=== PATIENT | male | born 1965 | race Caucasian/White ===

== ENCOUNTER 2024-02-20 09:54 | Emergency (ER) | payer SELFPAY ==
--- NOTE | ~2024-02-20 | XR_ITS ---
XR chest 1V portable DATE: 02/20/2024 10:20 INDICATION: Chest pain TECHNIQUE: Portable upright AP chest on 02/20/2024 1026 hours COMPARISON: None FINDINGS: Bilateral lower lung atelectasis and possible mild infiltrate. No pleural effusion or pulmo nary vascular congestion or pneumothorax. Normal heart size. No hilar or mediastinal enlargement. Included skeletal structures are unremarkable. IMPRESSION: Mild bibasilar infiltrate and/atelectasis Reviewed, dictated and finalized at location B.
[2024-02-20 09:54] VITALS: BP 111/98; PULSE 66; PULSE 78; RESP 18; TEMP 36.6; O2SAT 99
[2024-02-20 10:00] VITALS: PULSE 72; RESP 15; O2SAT 97
[2024-02-20 10:01] VITALS: BP 108/77; PULSE 71; RESP 14; O2SAT 99
[2024-02-20 10:02] LABS: Glucose Point of Care 252 mg/dl (65-105)
--- NOTE | 2024-02-20 10:02 | ECG_ITS ---
Measurements Intervals [place] Rate: 68 P: 32 VA: 182 QRS: -6 QRSD: 89 T: -57 QT: 387 QTc: 412 Interpretive Statements SINUS RHYTHM INFERIOR ST ELEVATION MYOCARDIAL INFARCT- ACUTE WITH RECIPROCAL HIGH LATERAL ST DEPRESSION BASELINE ARTIFACT- I, AVL ABNORMAL ECG NO PREVIOUS ECG AVAILABLE FOR COMPARISON Electronically Signed On 02-20-2024 11:49:37 CDT by Alex Fontana D.O.
[2024-02-20 10:15] VITALS: PULSE 78; RESP 17; O2SAT 97
[2024-02-20 10:16] VITALS: BP 135/86; PULSE 87; RESP 20; O2SAT 97
--- NOTE | 2024-02-20 10:19 | ED.GENADULT ---
HPI - General Adult General Chief complaint: Dizziness Stated complaint: dizzy; fall; chest pain Time Seen by Provider: 02/20/24 10:02 History of Present Illness HPI narrative: the patient is a 58-year-old male who takes no medications but has history of diabetes and hyperlipidemia. He does not smoke. For the last 2 days, the patient has had tingling in his arms and legs, with occasional discomfort in the arms and legs. He also has had discomfort in the upper chest neck and back region, most recent episode of chest neck or back discomfort was last night, no chest pain today or neck pain or back pain. He did have an episode of dizziness and near syncope with lightheadedness 2 days ago which prompted the onset of symptoms. He adamantly denies any chest pain at present. Last episode of pain was last night. He denies nausea vomiting or diaphoresis. No syncope at present today or yesterday. No dizziness present. He has been working quite a bit, 70 hour weeks and feels exhausted and tired. No URI or UTI symptoms. No pleuritic component to the chest pain. No dyspnea. No cough. No complaints. Related Data Allergies Allergy/AdvReac Type Severity Reaction Status Date / Time No Known Allergies Allergy Unverified 01/06/20 10:40 Review of Systems Review of Systems: All systems reviewed & are unremarkable except as noted in HPI and below Constitutional: Constitutional: Denies chills, Denies excessive sweating, Reports fatigue, Denies fever(s), Denies headache(s) and Reports weakness ( Generalized weakness with fatigue) Eyes: Eyes: Denies change in vision and Denies photophobia ENT: Denies dysphagia, Reports dizziness, Denies headache(s), Denies lip swelling, Denies nasal congestion, Denies sore throat and Denies tongue swelling Cardiovascular: Cardiovascular: Reports chest pain ( most recent episode yesterday evening), Denies syncope, Denies rapid heart rate and Denies dyspnea Respiratory: Respiratory: Denies cough, Denies dyspnea and Denies wheezing Gastrointestinal: Gastrointestinal: Denies abdominal pain, Denies constipation, Denies dysphagia, Denies diarrhea, Denies nausea and Denies vomiting Genitourinary: Genitourinary: Denies hematuria, Denies dysuria, Denies urinary frequency and Denies urinary urgency Musculoskeletal: Musculoskeletal: Denies back pain, Denies myalgias, Denies arthralgias, Denies joint swelling and Denies numbness Integumentary/Breasts: Skin/Breast: Denies pruritus, Denies erythema and Denies rash Neurologic: Denies confusion, Denies syncope, Denies headache(s), Denies focal weakness, Denies numbness and Denies weakness Comments: complains of tingling in both arms and both legs Psychiatric: Psychiatric: Denies anxiety and Denies confusion Endocrine: Endocrine: Denies excessive sweating and Reports fatigue Hematologic/Lymphatic: Hematologic/Lymphatic: Denies easy bleeding and Denies easy bruising Allergic/Immunologic: Allergic/Immunologic: Denies lip swelling, Denies tongue swelling and Denies wheezing PMFSH Family History Family History Father Hypertension Social History Social History Smoking status: Never smoker Alcohol intake: current Exam Const: General: healthy appearing, no acute distress, alert and well nourished Nutritional Appearance: well nourished Orientation/consciousness: patient oriented x3 Limitations: no limitations HENMT: Head: normal to inspection Ears: external ears normal Face/Nose/Sinus: normal facial exam Face and sinus: normal facial exam Mouth: Yes moist mucous membranes Throat: posterior oropharynx normal Eyes: Conjunctivae: conjunctivae normal Pupils: Equal, round and reactive pupils present EOM: EOMs intact bilaterally Neck: Neck: normal visual inspection and no meningeal signs Chest: Chest palpation & inspection: normal inspection of the
[2024-02-20 10:20] LABS: Basophils Absolute Auto 0.02 K/mm3 (0.00-0.10); Basophils Percent Auto 0.2 % (0.0-1.0); Eosinophils Absolute Auto 0.02 K/mm3 (0.02-0.50); Eosinophils Percent Auto 0.2 % (1.0-6.0); Hematocrit 39.2 % (40.0-54.0); Hemoglobin 12.9 g/dL (14.0-18.0); Immature Granulocyte Absolute 0.04 K/mm3 (0.00-0.00); Immature Granulocyte Percent A 0.4 % (0.0-0.0); Lymphocytes Absolute Auto 2.15 K/mm3 (1.10-4.50); Lymphocytes Percent Auto 21.7 % (18.0-42.0); Mean Corpuscular HGB Conc 32.9 g/dL (32-36); Mean Corpuscular Hemoglobin 26.9 pg (27.0-31.0); Mean Corpuscular Volume 81.7 fL (78.0-102.0); Mean Platelet Volume 10.1 fl (8.7-11.0); Monocytes Absolute Auto 1.04 K/mm3 (0.10-0.90); Monocytes Percent Auto 10.5 % (2.0-11.0); Neutrophils Absolute Auto 6.65 K/mm3 (1.70-7.20); Platelet Count Result 252 K/mm3 (150-420); Red Cell Distribution Width 12.7 % (11.6-14.4); White Blood Count 9.9 K/mm3 (4.8-10.8)
[2024-02-20] MEDS: ASPIRIN 81 MG CHEWABLE TABLET 324 MG PO (10:21)
[2024-02-20] MEDS: HEPARIN SODIUM 5,000 UNITS/ML VIAL 4000 UNITS IV PUSH (10:25)
[2024-02-20] MEDS: HEPARIN SOD/D5W 100 UNITS/ML 25,000 UNITS/250 ML BAG 10.6 UNITS (10:26)
[2024-02-20 10:34] VITALS: BP 138/86; PULSE 78; RESP 20; TEMP 36.9; O2SAT 98
[2024-02-20 10:35] LABS: Partial Thromboplastin Time 25.6 Sec (23.9-30.70); Prothrombin Time 10.8 Seconds (9.50-12.1)
[2024-02-20 10:44] LABS: Alanine Aminotransferase 39 U/L (16-63); Albumin Level 3.1 g/dL (3.4-5.0); Alkaline Phosphatase 105 U/L (46-116); Anion Gap 12 mmol/L (8-16); Aspartate Amino Transferase 79 U/L (15-37); Bilirubin,Total 0.6 mg/dL (0.00-1.00); Blood Urea Nitrogen 20 mg/dL (7-18); Calcium 8.8 mg/dL (8.5-10.1); Carbon Dioxide 27 mmol/L (21-32); Chloride 100 mmol/L (98-108); Creatine Kinase 592 U/L (39-308); Estimated CRCL calculation 77 ml/min; Estimated Glomerular Filt Rate > 60; Glucose 256 mg/dL (70-99); NT Pro B Type Natriuretic Pept 748 pg/mL (0-125); Osmolality Calculated 299 mOsm/kg (285-295); Potassium 3.8 mmol/L (3.5-5.1); Sodium 139 mmol/L (136-145); Total Protein 6.7 g/dL (6.4-8.2)
== END 2024-02-20 10:34 | disposition short-term general hospital (02) ==
PROVIDERS: Emergency Provider Emergency Medicine
DX: I21.11 ST elevation (STEMI) myocardial infarction involving right coronary artery (principal); E11.9 Type 2 diabetes mellitus without complications; E78.5 Hyperlipidemia, unspecified
CPT/HCPCS: 36415; 71045; 80053; 82550; 82948; 83880; 84484; 85025; 85610; 85730; 93005; 96374; 99291; A9270; J1644

== ENCOUNTER 2024-02-20 11:07 | Inpatient (IN) | payer SELFPAY ==
[2024-02-20] VITALS (28 sets, daily range): BP systolic 94–120; BP diastolic 61–85; PULSE 56–97; RESP 12–20; TEMP 36.1–36.9; O2SAT 95–100; BMI 28.1
--- NOTE | ~2024-02-20 | XR_ITS ---
XR chest 1V portable DATE: 02/20/2024 11:47 INDICATION: STEMI TECHNIQUE: Portable AP chest on 02/20/2024 at 1146 hours COMPARISON: 02/20/2024 portable AP chest at 1026 hours FINDINGS: Bilateral lower lung infiltrate or atelectasis are again noted. No pleural effusion or pulmonary vascular congestion or pneumothorax is evident. Normal heart size. Osteopenia. IMPRESSION: Bilateral lower lung infiltrate and/atelectasis Reviewed, dictated and finalized at location B.
--- NOTE | 2024-02-20 11:10 | ECG_ITS ---
Measurements Intervals [place] Rate: 67 P: 30 NM: 173 QRS: 2 QRSD: 85 T: 6 QT: 385 QTc: 408 Interpretive Statements SINUS RHYTHM LOW QRS VOLTAGE IN PRECORDIAL LEADS INFERIOR ST ELEVATION MYOCARDIAL INFARCT- RECENT BASELINE ARTIFACT- I, II, AVR ABNORMAL ECG NO PREVIOUS ECG AVAILABLE FOR COMPARISON Electronically Signed On 02-20-2024 12:58:21 CDT by Alex Fontana D.O.
[2024-02-20 11:34] LABS: Basophils Percent Auto 0.4 % (0.2-1.2); Eosinophils Percent Auto 0.2 % (0-4.4); Hemoglobin 13.2 g/dL (14.0-18.0); Immature Granulocyte Absolute 0.04 K/mm3 (0.00-0.031); Immature Granulocyte Percent A 0.4 % (0-0.5); Lymphocytes Absolute Auto 2.69 K/mm3 (0.9-3.2); Lymphocytes Percent Auto 25.6 % (18.3-44.2); Mean Corpuscular HGB Conc 33.8 g/dl (32-36); Mean Corpuscular Hemoglobin 27.6 pg (26-34); Mean Corpuscular Volume 81.6 fl (80-100); Mean Platelet Volume 10.6 fl (7.4-10.4); Monocytes Percent Auto 9.7 % (2.6-8.5); Neutrophils Absolute Auto 6.7 K/mm3 (1.3-6.7); Neutrophils Percent Auto 63.7 % (45.5-73.1); Platelet Count Result 268 k/mm3 (150-375); Red Blood Count 4.78 M/mm3 (4.6-6.20); Red Cell Distribution Width 12.9 % (11.5-14.5); White Blood Count 10.5 K/mm3 (4.5-10.0)
--- NOTE | 2024-02-20 11:34 | PM.CNCAR ---
Assessment and Plan Assessment and plan (1) ST elevation (STEMI) myocardial infarction involving right coronary artery: Code(s): I21.11 - ST elevation (STEMI) myocardial infarction involving right coronary artery Status: Acute Plan this is a 58-year-old man with a reported history of hypertension and diabetes on no medical therapy for some time he has presented with inferior wall ST-elevation CO that by history occurred on Friday night. His ischemic pain was interscapular back pain which has resolved by . He has presented far too late to be a candidate or benefit from emergency PCI. His 12 lead electrocardiogram suggest this is a completed event with deep Q-waves in leads 3 and AVF and a very high troponin level on presentation. I will treat him medically at this time with aspirin, beta-ashish, ARB and statin. An echocardiogram will be requested to assess left ventricular function. At some point given his relatively young age we will probably bring him for coronary angiography to assess for significant disease in non infarct related vessel however that does not have to be done even during this hospitalization if he remains asymptomatic Neno Live MD [facility] History of Present Illness History of Present Illness Consult date/time: 02/20/24 11:34 Reason For Visit: stemi Narrative: This is a 58-year-old man I am seeing in the emergency room as he was transferred from [place] following inferior wall myocardial infarction for further evaluation and treatment. The patient is not known to have any cardiac problems prior to this and began to have symptoms of his infarction on Friday evening of this week. He states that he was feeling poorly after working all day and he went home from work to recover. He states that he was having symptoms of some lightheadedness some unsteadiness of his gait and some interscapular back pain radiating from the left to the right shoulder through the upper part of his back. The symptoms of interscapular back pain finally resolved by . The symptoms were not obviously of immediate concern to him. He was feeling poorly through the day yesterday with weakness and fatigue and still was feeling unwell this morning and so he came to the emergency room at [facility] for evaluation. His 12 lead electrocardiogram shows sinus rhythm and evidence of a inferior wall infarction with some residual inferior ST elevation but with deep Q-waves in leads 3 and AVF. Once again he is no longer having any active interscapular back pain. His high sensitivity troponin level was 8611. He was given some aspirin and a bolus of heparin and transferred here for further evaluation in the emergency room from upon arrival in his room he appears to be around remarkably comfortable and offers no other pertinent history. He does have a history of hypertension and diabetes and states he has not seen a physician for any medical care and a number of years. Review of Systems Constitutional: Constitutional: Reports no additional constitutional complaints Eyes: Eyes: Reports no additional eye complaints ENT: Reports system reviewed and no additional complaints, except as documented Cardiovascular: Cardiovascular: Reports as per HPI Respiratory: Respiratory: Reports no additional respiratory complaints Gastrointestinal: Gastrointestinal: Reports no additional gastrointestinal complaints Musculoskeletal: Musculoskeletal: Reports no additional musculoskeletal complaints Integumentary/Breasts: Skin/Breast: Reports system reviewed and no additional complaints, except as docu Neurologic: Reports system reviewed and no additional complaints, except as documented Endocrine: Endocrine: Reports no additional endocrine complaints Hematologic/Lymphatic: Hematologic/Lymphatic: Reports no additional hematologic/lymphatic complaints Allergic/Immunologic: Allergic/Immunologic: Reports no additional all
[2024-02-20 11:45] LABS: Prothrombin Time 14.1 Seconds (11.1-14.7)
[2024-02-20 11:46] LABS: Partial Thromboplastin Time 76.9 Seconds (22.3-36.8)
[2024-02-20 11:50] LABS: Alanine Aminotransferase 33 U/L (6-50); Albumin Level 3.9 g/dL (3.5-5.1); Alkaline Phosphatase 122 U/L (38-126); Anion Gap 5 mmol/L (8-16); Aspartate Amino Transferase 89 U/L (17-59); Bilirubin,Total 0.8 mg/dL (0.2-1.3); Blood Urea Nitrogen 19 mg/dL (9-20); Calcium 9.1 mg/dL (8.4-10.2); Carbon Dioxide 25 mmol/L (22-30); Chloride 103 mmol/L (98-107); Cholesterol 212 mg/dL (0-200); Estimated CRCL calculation 98 ml/min; Estimated Glomerular Filt Rate > 60; Glucose 233 mg/dL (65-110); HDL Direct 41 mg/dL; Potassium 3.5 mmol/L (3.4-5.0); Sodium 133 mmol/L (137-145); Triglycerides 104 mg/dL (<150)
--- NOTE | 2024-02-20 11:56 | ED.CHESTPAIN ---
HPI - Chest Pain General Chief Complaint: Chest Pain Stated Complaint: stemi Time Seen by Provider: 02/20/24 11:20 History of Present Illness HPI narrative: This is a 58-year-old male, with history of diabetes, transferred from [place] emergency department for ST segment elevation DE. The patient states approximately 2 days ago, he had an episode of bilateral shoulder pain associated with lightheadedness and near-syncope. He described the pain as dull and gradually improving. He now states he has no pain. He was evaluated at [place] emergency department where EKG demonstrated changes consistent with inferior STEMI. The patient was transferred here for emergent cardiology evaluation and possible catheterization. Related Data Home Medications Medication Instructions Recorded Confirmed No Home Medications 02/20/24 02/20/24 Allergies Allergy/AdvReac Type Severity Reaction Status Date / Time No Known Allergies Allergy Unverified 01/06/20 10:40 Review of Systems Review of Systems: CONSTITUTIONAL: Denies fever, chills, or sweats. CARDIOVASCULAR: Denies chest pain, palpitations, or edema. RESPIRATORY: Denies cough or dyspnea. GASTROINTESTINAL: Denies abdominal pain, nausea, vomiting, or diarrhea. GENITOURINARY: Denies dysuria or hematuria. SKIN: Denies rash or itching. MUSCULOSKELETAL: Back and shoulder pain now resolved Denies back pain, joint pain, or myalgia. NEUROLOGIC: Denies headache, numbness, dizziness, or weakness. PSYCHIATRIC: Denies anxiety or depression. [facility] Past Medical History Medical History (Updated 02/20/24 @ 21:24 by Cecile Chavarria PA-C) Mixed hyperlipidemia Type 2 diabetes mellitus Surgical History Surgical History (Updated 02/20/24 @ 21:24 by Cecile Chavarria PA-C) No history of previous surgery Family History Family History (Updated 02/20/24 @ 21:24 by Cecile Chavarria PA-C) Father Hypertension Acute myocardial infarction Social History Social History (Updated 02/20/24 @ 14:57 by Cecile Chavarria PA-C) Social History: Surrogate medical decision maker: Hero or shiraz Engel. Code status: Full code. Smoking status: Never smoker Alcohol intake: current Drinks per week: 4 Substance use: never Do You Feel Safe in your Home?: Yes Lack of Transportation: No Lack of Food: Never True Current Housing: I Have Housing Concerned About Future Housing: No Difficulty Paying Gas/Electric Bills: No Difficulty Paying for Meds: YES Currently Unemployed: No Education: High School Diploma/GED Difficulty w/ Childcare or Family Care: No Spiritual care concerns: No Exam Narrative: GENERAL: Well-developed, well-nourished, and in no acute distress. HEAD: Normocephalic, atraumatic. EYES: PERRLA and EOMI. NECK: Supple. No carotid bruits or JVD CHEST: Clear to auscultation. No respiratory distress. No wheezes rales or rhonchi HEART: Regular rate and rhythm. No murmur heard. Normal peripheral pulses. ABDOMEN: Soft, nontender, nondistended, normal active bowel sounds. EXTREMITIES: Normal range of motion. No edema. SKIN: Warm, dry, no rash. NEURO: Alert and oriented x3. No focal deficit. Moving all 4 limbs spontaneously PSYCH: Normal mood and affect. Course Course Emergency Course: 11:17 - Bedside EKG demonstrates ST segment elevations in lead 2, lead 3 and AVF consistent with inferior DE. Dr. Priest, insole rasper, at bedside. The patient has an elevated troponin of 8000 from the outside facility, which is consistent with a completed DE. At this time, the patient is not a candidate for emergent catheterization. 12:24 - CBC demonstrates a slightly elevated white blood cell count 10.5 but is otherwise unremarkable. Chemistries demonstrate hyponatremia sodium of 133 and hyperglycemia glucose of 233 but is otherwise unremarkable. Troponin elevated to 9.4. Chest x-ray shows possible bilateral basal infiltrate versus atelectasis. I disc
[2024-02-20 12:01] LABS: LDL Cholesterol Direct 148 mg/dL
--- NOTE | 2024-02-20 12:58 | PC.NURSE ---
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 Metoprolol and Losartan held, pts current BP is 99/66 with a HR of 59. EDP aware.
--- NOTE | 2024-02-20 13:02 | PC.NURSE ---
Addendum entered by Alie Bundy RN 02/20/24 13:02: EDP aware. Original Note: Pt states his chest pain began Friday.
--- NOTE | 2024-02-20 13:17 | ADMGEN ---
This patient, Jluis Mayorga, was admitted to IMU Room 202-01. Patient/family oriented to hospital policies and general routines including ID bracelet, bed and alarms, visiting hours, pain management, procedures, bathroom and other care routines, personal items, smoking policy, room service/diet, and visiting hours. Information on how to activate the Rapid Response Team has been discussed. Patient/Family are encouraged to report perceived risks to care and to ask questions if they do not understand what they are told or what they should do.
[2024-02-20] MEDS: ROSUVASTATIN 20 MG TABLET PO (13:44)
[2024-02-20] MEDS: LACTATED RINGERS 1,000 ML 125 ML IV CONT ×2 (13:45→21:10)
--- NOTE | 2024-02-20 14:47 | PM.IMHP ---
H&P: HPI History of Present Illness Date/Time: 02/20/24 15:35 Chief Complaint: Dizziness and chest pain. Narrative: This is a 58-year-old male with type 2 diabetes mellitus and hyperlipidemia (not currently taking any medications) who presented to the emergency department at the [facility] earlier today with complaints of dizziness and chest pain since Friday evening. 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 He went home, took some Tylenol, and was able to rest for only a short period of time overnight due to ongoing symptoms. By the time he got up on Friday morning the discomfort in his chest discomfort had resolved however he has felt feeling weak, fatigued, and unwell since that time. Today he was out running errands and decided to go to the local emergency department to have an EKG as he was concerned after the incidence of chest pain on Friday evening. His EKG showed evidence of an inferior wall infarction with ST elevations in the inferior leads and deep Q-waves in leads 3 and AVF. He was given aspirin and a bolus of heparin and was transferred to [place] ED where he met with Dr. Live. He has not had any chest discomfort today and due to late presentation it was not felt that he would benefit from the emergency PCI and he has been started on medical therapy including aspirin, beta-ashish, statin, and ARB. At the time of my evaluation he is resting comfortably and has no current complaints. Review of Systems Review of Systems: Twelve systems were reviewed. Patient reports a lot of stress; he works at least 70 hours a week. He admits that he has not been taking good care of himself, specifically he has not been taking his medications or his insulin. He does not check his glucose at home. The last several weeks he has noticed some paresthesias in his hands and feet as well as intermittent blurry vision. No significant polydipsia or polyuria. No syncope. He thought he was going to pass out Friday night at the onset of his symptoms but he did not. No cold or flu symptoms. Except as documented, all other systems were reviewed and are negative. [facility] Past Medical History Medical History (Updated 02/20/24 @ 21:24 by Cecile Chavarria PA-C) Mixed hyperlipidemia Type 2 diabetes mellitus Surgical History Surgical History (Updated 02/20/24 @ 21:24 by Cecile Chavarria PA-C) No history of previous surgery Family History Family History (Updated 02/20/24 @ 21:24 by Cecile hCavarria PA-C) Father Hypertension Acute myocardial infarction Social History Social History (Updated 02/20/24 @ 14:57 by Cecile Chavarria PA-C) Social History: Surrogate medical decision maker: Hero or shiraz Engel. Code status: Full code. Smoking status: Never smoker Alcohol intake: current Drinks per week: 4 Substance use: never Do You Feel Safe in your Home?: Yes Lack of Transportation: No Lack of Food: Never True Current Housing: I Have Housing Concerned About Future Housing: No Difficulty Paying Gas/Electric Bills: No Difficulty Paying for Meds: YES Currently Unemployed: No Education: High School Diploma/GED Difficulty w/ Childcare or Family Care: No Spiritual care concerns: No Meds Home Medications and Allergies Home Medications Medication Instructions Recorded Confirmed Type No Home Medications 02/20/24 02/20/24 History Allergies Allergy/AdvReac Type Severity Reaction Status Date / Time No Known Allergies Allergy Unverified 01/06/20 10:40 Vital Signs Vital Signs - 24 hr 02/20/24 11:07 02/20/24 11:14 02/20/24 11:16 Pulse Rate 72 69 Respiratory Rate 13 Blood Pressure 120/85 Pulse Oximetry 100 100
--- NOTE | 2024-02-20 14:55 | ECHO_ITS ---
Patient Info Name: Jluis Mayorga Age: 58 years : 1965 Gender: Male Ht: 67 in Wt: 190 lbs BSA: 2.04 m2 HR: 52 bpm BP: 106 / 69 mmHg Heart Rhythm: Sinus Rhythm Technical Quality: Good Exam Date: 02/20/2024 3:14 PM Exam Location: Echo Lab Patient Status: Inpatient Admit Date: 02/20/2024 Staff Ordering Physician: Cecile Chavarria PA-C Transplant Coordinator: Jacoby Brunner RDCS Attending Provider: Amor Rios MD Referring Physician: Chet Stringer MD; Exam Type: CA echo doppler color flow Study Info Indications - inferior myocardial infarction Complete two-dimensional, color flow and Doppler transthoracic echocardiogram is performed. Summary 1. Complete two-dimensional, color flow and Doppler transthoracic echocardiogram is performed. 2. Right ventricular systolic function is reduced. 3. Left ventricular chamber dimension is normal. 4. Left ventricular systolic function is normal, estimated at 65-70%. 5. There is no increased left ventricular wall thickness. 6. The left ventricular diastolic function is grade I diastolic dysfunction. 7. The basal inferior wall, mid inferior wall, basal inferoseptal, basal inferolateral wall, and mid inferolateral wall are hypokinetic. 8. All other bradley appear normal. 9. There is mild mitral valve regurgitation. 10. There is mild tricuspid valve regurgitation. 11. Mild pulmonary hypertension, estimated pulmonary arterial systolic pressure is 41 mmHg. Left Ventricle Left ventricular chamber dimension is normal. Left ventricular systolic function is normal, estimated at 65-70%. There is no increased left ventricular wall thickness. The left ventricular diastolic function is grade I diastolic dysfunction. The basal inferior wall, mid inferior wall, basal inferoseptal, basal inferolateral wall, and mid inferolateral wall are hypokinetic. All other bradley appear normal. Right Ventricle Right ventricular chamber dimension is normal. Right ventricular systolic function is reduced. Left Atria Left atrial chamber dimension is normal. Right Atria Right atrial chamber dimension is normal. Atrial Septum Intact interatrial septum visualized by color flow imaging. Aortic Valve The aortic valve is trileaflet. There is mild aortic valve sclerosis. There is no aortic valve stenosis. There is trace aortic valve regurgitation. Pulmonic Valve The pulmonic valve is normal. There is no pulmonic valve stenosis. There is trace pulmonic regurgitation. Mitral Valve The mitral valve has normal leaflets. There is no mitral valve stenosis. There is mild mitral valve regurgitation. Tricuspid Valve The tricuspid valve leaflets are normal. There is no significant tricuspid valve stenosis. There is mild tricuspid valve regurgitation. Mild pulmonary hypertension, estimated pulmonary arterial systolic pressure is 41 mmHg. Pericardium/Pleural The pericardium appears normal. There is no pericardial effusion. Inferior Vena Cava Dilated inferior vena cava with <50% collapse upon inspiration consistent with normal right atrial pressure, 15 mmHg. Aorta The aortic root size at the sinus of Valsalva is normal. Left Ventricular Outflow Tract Name Value Normal LVOT 2D LVOT Diameter 2.1 cm LVOT Doppler
[2024-02-20 18:44] LABS: Glucose Point of Care 185 mg/dl (65-105)
[2024-02-20 20:10] LABS: Glucose Point of Care 202 mg/dl (65-105)
[2024-02-20] MEDS: INSULIN GLARGINE (*BKC) 100 UNITS/ML 13 UNITS SUB-Q (21:47)
[2024-02-21] VITALS (16 sets, daily range): BP systolic 95–109; BP diastolic 62–66; PULSE 60–76; RESP 16–20; TEMP 36.1–36.9; O2SAT 95–100
[2024-02-21] MEDS: LACTATED RINGERS 1,000 ML 125 ML IV CONT (04:37)
[2024-02-21 04:42] LABS: Basophils Percent Auto 0.4 % (0.2-1.2); Eosinophils Absolute Auto 0.1 K/mm3 (0-0.3); Eosinophils Percent Auto 0.5 % (0-4.4); Hematocrit 36.2 % (42.0-52.0); Hemoglobin 11.9 g/dL (14.0-18.0); Immature Granulocyte Absolute 0.04 K/mm3 (0.00-0.031); Immature Granulocyte Percent A 0.4 % (0-0.5); Lymphocytes Absolute Auto 2.77 K/mm3 (0.9-3.2); Lymphocytes Percent Auto 29.9 % (18.3-44.2); Mean Corpuscular HGB Conc 32.9 g/dl (32-36); Mean Corpuscular Hemoglobin 27.6 pg (26-34); Mean Platelet Volume 10.8 fl (7.4-10.4); Monocytes Percent Auto 10.8 % (2.6-8.5); Neutrophils Absolute Auto 5.4 K/mm3 (1.3-6.7); Platelet Count Result 231 k/mm3 (150-375); Red Blood Count 4.31 M/mm3 (4.6-6.20); Red Cell Distribution Width 12.7 % (11.5-14.5); White Blood Count 9.3 K/mm3 (4.5-10.0)
[2024-02-21 04:56] LABS: Alanine Aminotransferase 26 U/L (6-50); Albumin Level 3.4 g/dL (3.5-5.1); Alkaline Phosphatase 95 U/L (38-126); Anion Gap 4 mmol/L (8-16); Aspartate Amino Transferase 54 U/L (17-59); Bilirubin,Total 0.7 mg/dL (0.2-1.3); Blood Urea Nitrogen 17 mg/dL (9-20); Calcium 8.7 mg/dL (8.4-10.2); Carbon Dioxide 25 mmol/L (22-30); Chloride 105 mmol/L (98-107); Estimated CRCL calculation 117 ml/min; Estimated Glomerular Filt Rate > 60; Glucose 161 mg/dL (65-110); Magnesium 1.9 mg/dL (1.6-2.3); Potassium 3.6 mmol/L (3.4-5.0); Sodium 134 mmol/L (137-145)
[2024-02-21 08:26] LABS: Glucose Point of Care 151 mg/dl (65-105)
--- NOTE | 2024-02-21 08:37 | PM.IMPN ---
Progress Note: A&P Assessment and Plan (1) Recent myocardial infarction of inferior wall: Status: Acute Assessment and Plan: EKG with sinus rhythm, rate 67, inferior ST elevation myocardial infarct Chest pain had resolved. Due to late presentation cardiology does not feel emergent PCI is warranted at this time. Deep Q waves present in EKG. IMU admit Troponin has peaked 9.47-->9.22-->8.16 Medical therapy started with Metoprolol succinate 25 mg, losartan 25 mg, ASA 81 mg, Crestor 20 mg. PRN stat EKG for chest pain ECHO has been completed. Awaiting read. I ordered cardiac rehab referral already for discharge. (2) Type 2 diabetes mellitus with hyperglycemia: Code(s): E11.65 - Type 2 diabetes mellitus with hyperglycemia Status: Acute Assessment and Plan: Hemoglobin A1C is 12.0% diabetic diet with dietitian referral consult a r specialist for new DM diagnosis Lantus 13 units nightly, SSI ACHS accu checks Hypoglycemia protocol (3) Mixed hyperlipidemia: Code(s): E78.2 - Mixed hyperlipidemia Status: Acute Assessment and Plan: Triglycerides 104, Cholesterol 212, LDL 148, HDL 41 Started on Crestor 20 mg encourage diet and exercise Subjective Date/time seen: 02/21/24 08:37 Interval history: HPI obtained from chart, This is a 58-year-old male with type 2 diabetes mellitus and hyperlipidemia (not currently taking any medications) who presented to the emergency department at the [facility] earlier today with complaints of dizziness and chest pain since Friday. 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 He went home, took some Tylenol, and was able to rest for only a short period of time overnight due to ongoing symptoms. By the time he got up on Friday morning the discomfort in his chest discomfort had resolved however he has felt feeling weak, fatigued, and unwell since that time. Today he was out running errands and decided to go to the local emergency department to have an EKG as he was concerned after the incidence of chest pain on Friday evening. His EKG showed evidence of an inferior wall infarction with ST elevations in the inferior leads and deep Q-waves in leads 3 and AVF. He was given aspirin and a bolus of heparin and was transferred to [facility] where he met with Dr. Live. He has not had any chest discomfort today and due to late presentation it was not felt that he would benefit from the emergency PCI and he has been started on medical therapy including aspirin, beta-ashish, statin, and ARB. At the time of my evaluation he is resting comfortably and has no current complaints. 02/20: Mr. Mayorga is doing well this morning. He states he feels better than he has in the last couple of months. He was able to sleep for 4 hours last night. He has complete resolution of his chest pain. He denies dizziness, headache, or shortness of breath. He has already seen Cardiology today. Will plan to monitor for another 24 hours and he could potentially discharge home tomorrow from a cardiology standpoint. I discussed with him his hemoglobin A1c of 12%. He states that in the past he has been on metformin and long-acting insulin. He admits that he has not been taking good care of himself. He says that he works a lot and is always on the go. He says that he plans to slow down and wants to take care of his diabetes. He is agreeable to resume his metformin and long-acting insulin at discharge. He states he feels comfortable with administering his insulin. Review of Systems Review of Systems: All systems reviewed & are unremarkable except as noted in HPI and below Exam Narrative: General: w
[2024-02-21] MEDS: ROSUVASTATIN 20 MG TABLET PO (09:08)
[2024-02-21] MEDS: METOPROLOL SUCCINATE EXT REL 25 MG TABCR PO (09:08)
[2024-02-21] MEDS: ENOXAPARIN 40 MG/0.4 ML SYRINGE SUB-Q (09:08)
[2024-02-21] MEDS: LOSARTAN POTASSIUM 25 MG TABLET PO (09:08)
[2024-02-21] MEDS: ASPIRIN 81 MG ENTERIC TABLET PO (09:09)
[2024-02-21 12:00] LABS: Glucose Point of Care 147 mg/dl (65-105)
--- NOTE | 2024-02-21 12:07 | PM.PNCARD ---
Progress Note: A&P Assessment and Plan (1) ST elevation (STEMI) myocardial infarction involving right coronary artery: Code(s): I21.11 - ST elevation (STEMI) myocardial infarction involving right coronary artery Status: Inactive Assessment and Plan: Continue aspirin, metoprolol, losartan and statin. Will add clopidogrel 75 mg p.o. daily. (2) Type 2 diabetes mellitus with hyperglycemia: Code(s): E11.65 - Type 2 diabetes mellitus with hyperglycemia Status: Acute Assessment and Plan: Per hospitalist (3) Mixed hyperlipidemia: Code(s): E78.2 - Mixed hyperlipidemia Status: Acute Assessment and Plan: Continue statin (4) Hypokalemia: Code(s): E87.6 - Hypokalemia Status: Acute Assessment and Plan: KCL 40 mEq p.o. x1 Plan this is a 58-year-old man with a reported history of hypertension and diabetes on no medical therapy for some time he has presented with inferior wall ST-elevation ME that by history occurred on Friday night. His ischemic pain was interscapular back pain which has resolved by morning. He has presented far too late to be a candidate or benefit from emergency PCI. His 12 lead electrocardiogram suggest this is a completed event with deep Q-waves in leads 3 and AVF and a very high troponin level on presentation. I will treat him medically at this time with aspirin, beta-ashish, ARB and statin. An echocardiogram will be requested to assess left ventricular function. At some point given his relatively young age we will probably bring him for coronary angiography to assess for significant disease in non infarct related vessel however that does not have to be done even during this hospitalization if he remains asymptomatic Subjective Date/time seen: 02/21/24 12:07 Interval history: This is a 58-year-old male with type 2 diabetes mellitus and hyperlipidemia (not currently taking any medications) who presented to the emergency department at the [facility]. He was out running errands and decided to go to the local emergency department to have an EKG as he was concerned after the incidence of chest pain on Friday evening. His EKG showed evidence of an inferior wall infarction with ST elevations in the inferior leads and deep Q-waves in leads 3 and AVF. He was given aspirin and a bolus of heparin and was transferred to [facility] ED where he met with Dr. Live. He has not had any chest discomfort today and due to late presentation it was not felt that he would benefit from the emergency PCI and he has been started on medical therapy including aspirin, beta-ashish, statin, and ARB. At the time of my evaluation he is resting comfortably and has no current complaints. Date of service 02/21/2024: He normal feels well. No chest pain, shortness breath, syncope, presyncope Review of Systems Constitutional: Constitutional: Reports no additional constitutional complaints Eyes: Eyes: Reports no additional eye complaints ENT: Reports system reviewed and no additional complaints, except as documented Cardiovascular: Cardiovascular: Reports as per HPI and Denies chest pain Respiratory: Respiratory: Reports no additional respiratory complaints and Denies dyspnea Gastrointestinal: Gastrointestinal: Reports no additional gastrointestinal complaints Musculoskeletal: Musculoskeletal: Reports no additional musculoskeletal complaints Integumentary/Breasts: Skin/Breast: Reports system reviewed and no additional complaints, except as docu Neurologic: Reports system reviewed and no additional complaints, except as documented Endocrine: Endocrine: Reports no additional endocrine complaints Hematologic/Lymphatic: Hematologic/Lymphatic: Reports no additional hematologic/lymphatic complaints Allergic/Immunologic: Allergic/Immunologic: Reports no additional allergic/immunologic complaints Exam Const: General: comfortable a
[2024-02-21] MEDS: CLOPIDOGREL BISULFATE 75 MG TABLET PO (12:23)
[2024-02-21] MEDS: POTASSIUM CHLORIDE 20 MEQ ER TABLET 40 MEQ PO (12:23)
[2024-02-21 18:07] LABS: Glucose Point of Care 127 mg/dl (65-105)
[2024-02-21 19:51] LABS: Glucose Point of Care 187 mg/dl (65-105)
[2024-02-21] MEDS: INSULIN GLARGINE (*BKC) 100 UNITS/ML 13 UNITS SUB-Q (20:53)
[2024-02-22] VITALS (10 sets, daily range): BP systolic 95–108; BP diastolic 59–74; PULSE 61–79; RESP 16–20; TEMP 35.7–36.6; O2SAT 98–100
[2024-02-22 05:06] LABS: Basophils Percent Auto 0.5 % (0.2-1.2); Eosinophils Absolute Auto 0.1 K/mm3 (0-0.3); Eosinophils Percent Auto 0.7 % (0-4.4); Hematocrit 34.7 % (42.0-52.0); Hemoglobin 11.3 g/dL (14.0-18.0); Immature Granulocyte Absolute 0.03 K/mm3 (0.00-0.031); Immature Granulocyte Percent A 0.3 % (0-0.5); Lymphocytes Absolute Auto 2.88 K/mm3 (0.9-3.2); Lymphocytes Percent Auto 33.3 % (18.3-44.2); Mean Corpuscular HGB Conc 32.6 g/dl (32-36); Mean Corpuscular Hemoglobin 27.6 pg (26-34); Mean Corpuscular Volume 84.8 fl (80-100); Mean Platelet Volume 11.1 fl (7.4-10.4); Monocytes Absolute Auto 0.9 K/mm3 (0.1-0.6); Monocytes Percent Auto 10.4 % (2.6-8.5); Neutrophils Absolute Auto 4.8 K/mm3 (1.3-6.7); Neutrophils Percent Auto 54.8 % (45.5-73.1); Platelet Count Result 234 k/mm3 (150-375); Red Blood Count 4.09 M/mm3 (4.6-6.20); Red Cell Distribution Width 12.8 % (11.5-14.5); White Blood Count 8.7 K/mm3 (4.5-10.0)
[2024-02-22 05:10] LABS: Alanine Aminotransferase 23 U/L (6-50); Albumin Level 3.2 g/dL (3.5-5.1); Alkaline Phosphatase 101 U/L (38-126); Anion Gap 2 mmol/L (8-16); Aspartate Amino Transferase 38 U/L (17-59); Bilirubin,Total 0.6 mg/dL (0.2-1.3); Blood Urea Nitrogen 14 mg/dL (9-20); Calcium 8.6 mg/dL (8.4-10.2); Carbon Dioxide 25 mmol/L (22-30); Chloride 106 mmol/L (98-107); Estimated CRCL calculation 117 ml/min; Estimated Glomerular Filt Rate > 60; Glucose 127 mg/dL (65-110); Potassium 3.3 mmol/L (3.4-5.0); Sodium 133 mmol/L (137-145)
--- NOTE | 2024-02-22 08:10 | PM.IMPN ---
Progress Note: A&P Assessment and Plan (1) Recent myocardial infarction of inferior wall: Status: Acute Assessment and Plan: EKG with sinus rhythm, rate 67, inferior ST elevation myocardial infarct Chest pain had resolved. Due to late presentation cardiology does not feel emergent PCI is warranted at this time. Deep Q waves present in EKG. IMU admit Troponin has peaked 9.47-->9.22-->8.16 Medical therapy started with Metoprolol succinate 25 mg, losartan 25 mg, ASA 81 mg, Crestor 20 mg. PRN stat EKG for chest pain ECHO has been completed. Awaiting read. I ordered cardiac rehab referral already for discharge. 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 for new DM diagnosis Lantus 13 units nightly, SSI ACHS accu checks Hypoglycemia protocol (3) Mixed hyperlipidemia: Code(s): E78.2 - Mixed hyperlipidemia Status: Acute Assessment and Plan: Triglycerides 104, Cholesterol 212, LDL 148, HDL 41 Started on Crestor 20 mg encourage diet and exercise Subjective Date/time seen: 02/22/24 08:10 Interval history: HPI obtained from chart, This is a 58-year-old male with type 2 diabetes mellitus and hyperlipidemia (not currently taking any medications) who presented to the emergency department at the [facility] earlier today with complaints of dizziness and chest pain since Friday. 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 He went home, took some Tylenol, and was able to rest for only a short period of time overnight due to ongoing symptoms. By the time he got up on Friday morning the discomfort in his chest discomfort had resolved however he has felt feeling weak, fatigued, and unwell since that time. Today he was out running errands and decided to go to the local emergency department to have an EKG as he was concerned after the incidence of chest pain on Friday evening. His EKG showed evidence of an inferior wall infarction with ST elevations in the inferior leads and deep Q-waves in leads 3 and AVF. He was given aspirin and a bolus of heparin and was transferred to [place] ED where he met with Dr. Live. He has not had any chest discomfort today and due to late presentation it was not felt that he would benefit from the emergency PCI and he has been started on medical therapy including aspirin, beta-ashish, statin, and ARB. At the time of my evaluation he is resting comfortably and has no current complaints. 02/20: Mr. Mayorga is doing well this morning. He states he feels better than he has in the last couple of months. He was able to sleep for 4 hours last night. He has complete resolution of his chest pain. He denies dizziness, headache, or shortness of breath. He has already seen Cardiology today. Will plan to monitor for another 24 hours and he could potentially discharge home tomorrow from a cardiology standpoint. I discussed with him his hemoglobin A1c of 12%. He states that in the past he has been on metformin and long-acting insulin. He admits that he has not been taking good care of himself. He says that he works a lot and is always on the go. He says that he plans to slow down and wants to take care of his diabetes. He is agreeable to resume his metformin and long-acting insulin at discharge. He states he feels comfortable with administering his insulin. 02/21: Patient is doing well today. He denies chest pain. He says the numbness he had previously experienced is completely resolved. He is anxious to disc
[2024-02-22 08:36] LABS: Glucose Point of Care 141 mg/dl (65-105)
[2024-02-22] MEDS: LOSARTAN POTASSIUM 25 MG TABLET PO (09:00)
[2024-02-22] MEDS: ROSUVASTATIN 20 MG TABLET PO (09:00)
[2024-02-22] MEDS: METOPROLOL SUCCINATE EXT REL 25 MG TABCR PO (09:00)
[2024-02-22] MEDS: POTASSIUM CHLORIDE 20 MEQ ER TABLET 40 MEQ PO (09:01)
[2024-02-22] MEDS: ASPIRIN 81 MG ENTERIC TABLET PO (09:01)
[2024-02-22] MEDS: CLOPIDOGREL BISULFATE 75 MG TABLET PO (09:01)
--- NOTE | 2024-02-22 11:58 | PM.PNCARD ---
Progress Note: A&P Assessment and Plan (1) ST elevation (STEMI) myocardial infarction involving right coronary artery: Code(s): I21.11 - ST elevation (STEMI) myocardial infarction involving right coronary artery Status: Inactive Assessment and Plan: Okay for discharge today with aspirin, clopidogrel, metoprolol, losartan, p.r.n. nitro, statin. Nitroglycerin 0.4 mg sublingual p.r.n. chest pain is ordered he is instructed to only take it if extreme emergency. His BP is a little low and likely has some degree of RV involvement therefore nitroglycerin should be used very cautiously Long-term plan as below Echo: 2. Right ventricular systolic function is reduced. ? 3. Left ventricular chamber dimension is normal. ? 4. Left ventricular systolic function is normal, estimated at 65-70%. ? 5. There is no increased left ventricular wall thickness. ? 6. The left ventricular diastolic function is grade I diastolic dysfunction. ? 7. The basal inferior wall, mid inferior wall, basal inferoseptal, basal inferolateral wall, and mid inferolateral wall are hypokinetic. ? 8. All other bradley appear normal. ? 9. There is mild mitral valve regurgitation. ? 10. There is mild tricuspid valve regurgitation. ? 11. Mild pulmonary hypertension, estimated pulmonary arterial systolic pressure is 41 mmHg. (2) Type 2 diabetes mellitus with hyperglycemia: Code(s): E11.65 - Type 2 diabetes mellitus with hyperglycemia Status: Acute Assessment and Plan: Per hospitalist (3) Mixed hyperlipidemia: Code(s): E78.2 - Mixed hyperlipidemia Status: Acute Assessment and Plan: Continue statin (4) Hypokalemia: Code(s): E87.6 - Hypokalemia Status: Acute Assessment and Plan: Potassium 3.3 today. Plan this is a 58-year-old man with a reported history of hypertension and diabetes on no medical therapy for some time he has presented with inferior wall ST-elevation RI that by history occurred on Friday night. His ischemic pain was interscapular back pain which has resolved by morning. He has presented far too late to be a candidate or benefit from emergency PCI. His 12 lead electrocardiogram suggest this is a completed event with deep Q-waves in leads 3 and AVF and a very high troponin level on presentation. At some point given his relatively young age we will probably bring him for coronary angiography to assess for significant disease in non infarct related vessel however that does not have to be done even during this hospitalization if he remains asymptomatic Subjective Date/time seen: 02/22/24 11:58 Interval history: This is a 58-year-old male with type 2 diabetes mellitus and hyperlipidemia (not currently taking any medications) who presented to the emergency department at [facility]. He was out running errands and decided to go to the local emergency department to have an EKG as he was concerned after the incidence of chest pain on Friday evening. His EKG showed evidence of an inferior wall infarction with ST elevations in the inferior leads and deep Q-waves in leads 3 and AVF. He was given aspirin and a bolus of heparin and was transferred to [place] ED where he met with Dr. Live. He has not had any chest discomfort today and due to late presentation it was not felt that he would benefit from the emergency PCI and he has been started on medical therapy including aspirin, beta-ashish, statin, and ARB. At the time of my evaluation he is resting comfortably and has no current complaints. Date of service 02/21/2024: He normal feels well. No chest pain, shortness breath, syncope, presyncope Date of service 02/22/2024: Continues to feel well. No chest pain, shortness of breath. Review of Systems Constitutional: Constitutional: Reports no additional constitutional complaints Eyes: Eyes: Reports no additional eye complaints ENT: Reports system rev
--- NOTE | 2024-02-22 12:01 | PM.DS ---
DS: Admitting Diagnosis Discharge Date 02-21 Admitting Diagnosis Chest pain DS: Discharge Diagnosis Discharge Diagnosis (1) Recent myocardial infarction of inferior wall: Status: Acute Assessment and Plan: EKG with sinus rhythm, rate 67, inferior ST elevation myocardial infarct Chest pain had resolved. Due to late presentation cardiology does not feel emergent PCI is warranted at this time. Deep Q waves present in EKG. IMU admit Troponin has peaked 9.47-->9.22-->8.16 Medical therapy started with Metoprolol succinate 25 mg, losartan 25 mg, ASA 81 mg, Crestor 20 mg. PRN stat EKG for chest pain ECHO has been completed. Awaiting read. I ordered cardiac rehab referral already for discharge. (2) Type 2 diabetes mellitus with hyperglycemia: Code(s): E11.65 - Type 2 diabetes mellitus with hyperglycemia Status: Acute Assessment and Plan: Hemoglobin A1C is 12.0% diabetic diet with dietitian referral consult special education paraeducator for new DM diagnosis Lantus 13 units nightly, [facility] ACHS accu checks Hypoglycemia protocol (3) Mixed hyperlipidemia: Code(s): E78.2 - Mixed hyperlipidemia Status: Acute Assessment and Plan: Triglycerides 104, Cholesterol 212, LDL 148, HDL 41 Started on Crestor 20 mg encourage diet and exercise DS: Summary Hospital Course Reason for hospitalization: acute [place], STEMI Hospital Course: This is a 58-year-old male with type 2 diabetes mellitus and hyperlipidemia (not currently taking any medications) who presented to the emergency department at the [facility] earlier today with complaints of dizziness and chest pain since Friday evening. 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 He went home, took some Tylenol, and was able to rest for only a short period of time overnight due to ongoing symptoms. By the time he got up on Friday morning the discomfort in his chest discomfort had resolved however he has felt feeling weak, fatigued, and unwell since that time. Today he was out running errands and decided to go to the local emergency department to have an EKG as he was concerned after the incidence of chest pain on Friday evening. His EKG showed evidence of an inferior wall infarction with ST elevations in the inferior leads and deep Q-waves in leads 3 and AVF. He was given aspirin and a bolus of heparin and was transferred to [facility] ED where he met with Dr. Live. He has not had any chest discomfort today and due to late presentation it was not felt that he would benefit from the emergency PCI and he has been started on medical therapy including aspirin, beta-ashish, statin, and ARB. At the time of my evaluation he is resting comfortably and has no current complaints. 02/20:? Mr. Mayorga is doing well this morning.? He states he feels better than he has in the last couple of months.? He was able to sleep for 4 hours last night. He has complete resolution of his chest pain.? He denies dizziness, headache, or shortness of breath.? He has already seen Cardiology today.? Will plan to monitor for another 24 hours and he could potentially discharge home tomorrow from a cardiology standpoint.? I discussed with him his hemoglobin A1c of 12%.? He states that in the past he has been on metformin and long-acting insulin.? He admits that he has not been taking good care of himself.? He says that he works a lot and is always on the go.? He says that he plans to slow down and wants to take care of his diabetes.? He is agreeable to resume his metformin and long-acting insulin at discharge.? He states he feels comfortable with administering his insulin. 02/21: Patient is doing well today. He denies chest pain. He says the
[2024-02-22 16:10] LABS: Glucose Point of Care 170 mg/dl (65-105)
--- NOTE | 2024-02-25 10:01 | PCCDE ---
02/24 10:00 am On attempt to reach patient message recording voice mailbox not set up yet This is the same outgoing message received on 02/22 attempt to reach pt following his discharge on [facility]
--- NOTE | 2024-02-25 11:15 | PCCDE ---
02/25/24 after multiple attempts, pt returned call. Denies questions re: DM. Advised of outpatient DSMT/MNT services.
== END 2024-02-22 13:24 | disposition home or self-care (01) | DRG 190 ==
LOC: ANHED 12:41 → ANHIMU 13:12
PROVIDERS: Physician Assistant; Admitting Provider Internal Medicine; Emergency Provider Preventive Medicine Aerospace Medicine; Referring Provider Family Medicine; Visit Provider Nurse Practitioner Acute Care
DX: I21.19 ST elevation (STEMI) myocardial infarction involving other coronary artery of inferior wall (principal); E11.65 Type 2 diabetes mellitus with hyperglycemia; E78.2 Mixed hyperlipidemia; E87.6 Hypokalemia
CPT/HCPCS: 36415; 71045; 80048; 80053; 80061; 80076; 82948; 83036; 83735; 84484; 85025; 85610; 85730; 86850; 86900; 86901; 93005; 93306; 99285; A9270; G0378; J1650; J1815; J7120

== ENCOUNTER 2024-10-27 08:25 | Outpatient (CLI) | payer OTHER, SELFPAY ==
--- NOTE | ~2024-10-27 | XR_ITS ---
XR chest 2V 10/27/2024 08:46 Indication: Costochondral junction syndrome. Back pain. Procedure: 2 view chest Comparison: 02/20/2024 Findings: Right middle lobe infiltrates may represent atelectasis or developing pneumonia. Heart size normal. Mildly elevated right diaphragm. Left lung clear. No significant effusion, edema or pneumoth orax. Impression: 1: Right middle lobe infiltrates represent atelectasis and/or pneumonia. Reviewed, dictated and finalized at location [] RATIONS WORKROOM CLERK Impression: 1: Right middle lobe infiltrates represent atelectasis and/or pneumonia.
--- NOTE | 2024-10-27 08:36 | ECG_ITS ---
Test Date: 2024-10-27 08:56:21 Measurements Intervals [place] Rate: 85 P: 50 MD: 140 QRS: 19 QRSD: 90 T: -21 QT: 363 QTc: 433 Interpretive Statements SINUS RHYTHM INFERIOR INFARCT, AGE INDETERMINATE BASELINE WANDER- I, II ABNORMAL ECG No previous ECG available for comparison Electronically Signed On 10-27-2024 09:31:23 LICENSED JOURNEYMAN ELECTRICIAN by Alex Fontana D.O.
== END 2024-10-27 08:26 | disposition home or self-care (01) ==
PROVIDERS: PCP Physician Assistant; Visit Provider Physician Assistant
DX: M94.0 Chondrocostal junction syndrome [Tietze] (principal); R91.8 Other nonspecific abnormal finding of lung field; R94.31 Abnormal electrocardiogram [ECG] [EKG]
CPT/HCPCS: 71046; 93005